=== PATIENT | female | born 1940 | race Caucasian/White ===

== ENCOUNTER → 2017-07-31 | Outpatient (CLI) | payer OTHER ==
[~2017-07-31] VITALS: Ht 175.3 cm; Wt 73.9 kg
[~2017-07-31] MED LIST: ASPIRIN81 MG PO; BRILINTA90 MG PO; COREG3.125 MG PO; CVS DAILY GUM200 MCG PO; FISH OIL300 MG PO; MELOXICAM15 MG PO; SIMVASTATIN40 MG PO; TRIAMTERENE-HC1 EAC1 PO
--- NOTE | ~2017-07-31 | EKG ---
PATIENT: KIEL NG UNIT #: [id number] Ventricular Rate: 57 BPM Atrial Rate: 57 BPM P-R Interval: 322 ms QRS Duration: 80 ms Q-T Interval: 452 ms QTC Calculation(Bezet): 439 ms P [place]: 66 degrees Calculated R [place]: -21 degrees Calculated T [place]: 42 degrees Diagnosis Line: Sinus bradycardia with 1st degree A-V block with Diagnosis Line: Premature atrial complexes Diagnosis Line: Possible Inferior infarct , age undetermined Diagnosis Line: Abnormal ECG Diagnosis Line: No previous ECGs available Diagnosis Line: Confirmed by BRIDGETTE LAN MD ([id number]) on 08/01/2017 Diagnosis Line: 5:23:49 AM INTERPRETING MD: EDYTA SALINAS
[2017-07-31 09:56] LABS: BASOPHIL% 0.6 % (0-2.5); EOSINOPHIL# 0.1 X10e3 (0-0.7); EOSINOPHIL% 1.7 % (0.0-7.0); HEMATOCRIT 38.1 % (35.0-45.0); HEMOGLOBIN 12.9 gm/dL (12.0-16.0); LYMPHOCYTE# 1.3 X10e3 (1.0-3.5); LYMPHOCYTE% 24.5 % (17.0-45.0); MEAN CELL VOLUME 88.9 FL (83-96); MEAN CORPUSCULAR HEMOGLOBIN 30.1 PG (28-34); MEAN CORPUSCULAR HGB CONC 33.9 g/dL (30-36); MEAN PLATELET VOLUME 8.4 FL (6.5-11.5); MONOCYTE# 0.5 X10e3 (0-1.0); MONOCYTE% 9.9 % (3.0-12.0); NEUTROPHIL# 3.5 X10e3 (1.5-7.1); NEUTROPHIL% 63.3 % (40-75); PLATELET COUNT 247 X10e3 (140-420); RED BLOOD COUNT 4.29 X10e (3.90-5.30); WHITE BLOOD COUNT 5.5 X10e3 (4.0-10.5)
[2017-07-31 09:58] LABS: DIFF IND NO
[2017-07-31 10:10] LABS: PARTIAL THROMBOPLASTIN TIME 24.7 SECONDS (23.5-31.3); PROTHROMBIN TIME (PATIENT) 10.8 SECONDS (10.0-11.7)
[2017-07-31 10:33] LABS: BUN/CREATININE RATIO 23.33; CALCIUM SERUM 9.4 mg/dL (8.4-10.2); CREATININE SERUM 1.2 mg/dL (0.6-1.4); POTASSIUM 3.7 mmol/L (3.5-5.1)
== END | disposition home or self-care (01) ==
LOC: CSSDAY 08:15 → CCVL 08:15
PROVIDERS: Internal Medicine Cardiovascular Disease
DX: R07.89 Other chest pain (principal); I25.10 Atherosclerotic heart disease of native coronary artery without angina pectoris; I10 Essential (primary) hypertension; R55 Syncope and collapse; Z82.49 Family history of ischemic heart disease and other diseases of the circulatory system
CPT/HCPCS: 80048; 85025; 85610; 85730; 93005; 99152; 99153; C1769; C1887; C1894; J1644; J2250; J3010